=== PATIENT | male | born 1975 | race Caucasian/White ===

== ENCOUNTER 2020-06-07 07:37 | Outpatient (CLI) | payer OTHER, SELFPAY ==
--- NOTE | 2020-06-07 07:44 | XRR_ITS ---
PROCEDURE INFORMATION: Exam: XR Chest, 2 Views Exam date and time: 06/07/2020 7:54 AM Age: 44 years old Clinical indication: Cough; Additional info: Chronic cough TECHNIQUE: Imaging protocol: XR of the chest Views: 2 views. COMPARISON: No relevant prior studies available. FINDINGS: Lungs: Unremarkable. No consolidation. Pleural space: Unremarkable. No pleural effusion. No pneumothorax. Heart/Mediastinum: Unremarkable. No cardiomegaly. Bones/joints: Unremarkable. XR/XR chest 2V* [id number] IMPRESSION: No acute findings.
== END 2020-06-07 07:38 | disposition home or self-care (01) ==
LOC: RAD 07:42
PROVIDERS: PCP Family Medicine; Visit Provider Family Medicine
DX: R05 Cough (principal)
CPT/HCPCS: 71046

== ENCOUNTER 2020-10-11 20:00 | Outpatient (CLI) | payer OTHER, SELFPAY | END 2020-10-11 20:01 | disposition home or self-care (01) | LOC: SLEEP 10-12 09:33 | PROVIDERS: PCP Family Medicine; Visit Provider Family Medicine | DX: G47.10 Hypersomnia, unspecified (principal); G47.33 Obstructive sleep apnea (adult) (pediatric) | CPT/HCPCS: 95810 ==

== ENCOUNTER → 2021-10-09 08:15 | Outpatient (BNVA) | payer BC, SELFPAY | PROVIDERS: PCP Family Medicine; Visit Provider Family Medicine | DX: Z13.6 Encounter for screening for cardiovascular disorders (principal); Z12.5 Encounter for screening for malignant neoplasm of prostate | CPT/HCPCS: 80053; 80061; 85025; G0103 ==

== ENCOUNTER 2021-12-20 07:59 | Outpatient (CLI) | payer OTHER, SELFPAY ==
--- NOTE | 2021-12-20 14:21 | PFTS_ITS ---
Date of Study:12/20/21 Date of Dictation: 12/21/2021 MECHANICS: Prebronchodilator forced vital capacity (FVC) is normal. Prebronchodilator FEV1 is normal FEV1/FVC is normal There is no postbronchodilator study. FLOW VOLUME LOOP: Normal LUNG VOLUMES: Total lung capacity (TLC) is normal. Residual volume (RV) is normal. DIFFUSING CAPACITY FOR CARBON MONOXIDE: Normal . INTERPRETATION: The pulmonary function test is normal. MTDD
== END 2021-12-20 08:00 | disposition home or self-care (01) ==
PROVIDERS: PCP Family Medicine; Visit Provider Nurse Practitioner
DX: J45.909 Unspecified asthma, uncomplicated (principal)
CPT/HCPCS: 94010; 94726; 94729

== ENCOUNTER 2022-01-25 06:21 | Day surgery (SDC) | payer OTHER, SELFPAY ==
[2022-01-23 08:23] VITALS: BMI 27.7
--- NOTE | 2022-01-25 06:13 | W.PM.OPSFHP ---
Same Day Surgery H&P Indication for Procedure/HPI DATE OF PROCEDURE: January 25, 2022 CHIEF COMPLAINT/INDICATIONFOR SURGICAL PROCEDURE: Screening colonoscopy PREOP DIAGNOSIS: Screening colonoscopy PLANNED PROCEDURE: Operation Date: 01/25/22 08:00 Proposed Procedures p Colonoscopy 04082/z12.11(Not Applicable) - Edmond Galeana MD This is a pleasant 46 years old gentleman comes today for screening colonoscopy. ROS All systems have been reviewed negative except as for the above or per problem list. Medications/Allergies* Allergies/Adverse Reactions Allergy/AdvReac Type Severity Reaction Status Date / Time No Known Allergies Allergy Verified 01/25/22 07:52 Pertinent History/Comorbid Conditions* Medical History (Updated 11/24/21 @ 08:40 by Edmond Galeana MD) Allergic rhinitis Surgical History (Updated 09/26/20 @ 13:19 by Keily Doe DO) H/O vasectomy Family History (Updated 09/26/20 @ 13:11 by Shereen Barnes LPN) Diabetes Social History Smoking and tobacco status: never smoked Alcohol intake: current Alcohol intake frequency: holidays/special occasions only Pertinent Exam Findings alert, oriented x 3, regular rate & rhythm and procedure specific exam findings (Abdominal examination nontender nondistended soft) Recommendations Surgery/Procedure today (Screening colonoscopy) Coding Level of Care Code Acute Loss Prevention Coordinator for Neri Sosa
[2022-01-25 06:47] VITALS: BP 118/82; PULSE 61; RESP 18; TEMP 36.2; O2SAT 98
[2022-01-25] MEDS: sodium chloride 0.9% 1,000 ML 30 ML IV (06:49)
--- NOTE | 2022-01-25 07:57 | ANES.PREANE2 ---
Pre-Anesthetic Assessment Height/Weight: Height 1.7 m Weight 80.286 kg Temp Pulse Resp BP Pulse Ox 97.1 F L 61 18 118/82 98 01/25/22 06:47 01/25/22 06:47 01/25/22 06:47 01/25/22 06:47 01/25/22 06:47 Preop Diagnosis: Screening colonoscopy Operation Date: 01/25/22 08:00 Proposed Procedures p Colonoscopy 05180/z12.11(Not Applicable) - Edmond Galeana MD Familial anesthetic complications: None Was Beta Joel taken within 24 hours: N/A Was Clonidine taken within 24 hours: N/A Last intake: Intake Last Liquid Date 01/24/22 Last Liquid Time 22:00 Last Solid Date 01/23/22 Last Solid Time 22:00 Social No alcohol and No tobacco Exam alert, oriented x 3, clear to auscultation bilaterally and regular rate & rhythm Airway Submandibular: within normal limits Cervical ROM: within normal limits Mallampati: Class II Dentition: full GI Gastroesophageal Reflux Disease Anesthetic Plan ASA status: 2 Anesthesia: MAC Medications/Allergies Home Medications Medication Instructions Recorded Confirmed Last Taken Type omeprazole 40 mg capsule,delayed See Rx Instructions .ROUTE 01/17/22 01/25/22 01/24/22 Rx release .COMPLEX #90 cap Allergies Allergy/AdvReac Type Severity Reaction Status Date / Time No Known Allergies Allergy Verified 01/25/22 07:52 Current Medications Generic Name Dose Route Start Last Admin Trade Name Freq PRN Reason Stop Dose Admin Sodium Chloride 1,000 mls @ 30 mls/hr 01/25/22 06:45 01/25/22 06:49 Sodium Chloride 0.9% IV 01/26/22 06:44 30 mls/hr .Q24H JONG Administration PFSH Anesthesia Medical History Allergic rhinitis Surgical History H/O vasectomy Family History Other Diabetes Social History Smoking and tobacco status: never smoked Alcohol intake: current Alcohol intake frequency: holidays/special occasions only Data Anesthesia Cardiac Studies: No Data to Display
[2022-01-25 08:32] VITALS: BP 109/71; PULSE 65; RESP 18; TEMP 36.4; O2SAT 97
[2022-01-25 08:41] VITALS: BP 116/73; PULSE 60; RESP 18; TEMP 36.2; O2SAT 98
--- NOTE | 2022-01-25 10:56 | ANE.PACU2 ---
Inpatient post-anesthesia follow up: Airway intact: Yes Vital signs: Temperature 97.2 F Pulse Rate 60 Respiratory Rate 18 Blood Pressure 116/73 Pulse Oximetry 98 Oxygen Delivery Me thod Room Air Oxygen Flow Rate Fraction of Inspir ed Oxygen Hydration adequate: Yes Nausea and vomiting: No Pain level: 1
== END 2022-01-25 08:54 | disposition home or self-care (01) ==
PROVIDERS: PCP Family Medicine; Visit Provider Surgery
PROC: 0DJD8ZZ Inspection of Lower Intestinal Tract, Via Natural or Artificial Opening Endoscopic (ICD-10-PCS; CPT 45378; principal; 2022-01-25 08:00)
DX: Z12.11 Encounter for screening for malignant neoplasm of colon (principal); K57.30 Diverticulosis of large intestine without perforation or abscess without bleeding; K21.9 Gastro-esophageal reflux disease without esophagitis
CPT/HCPCS: 45378; J2704; J7030

== ENCOUNTER → 2022-02-12 11:17 | Outpatient (BNVA) | payer OTHER, SELFPAY | PROVIDERS: PCP Family Medicine; Visit Provider Surgery | DX: Z09 Encounter for follow-up examination after completed treatment for conditions other than malignant neoplasm (principal); K57.31 Diverticulosis of large intestine without perforation or abscess with bleeding | CPT/HCPCS: 99213 ==

== ENCOUNTER 2023-11-29 07:47 | Outpatient (CLI) | payer OTHER, SELFPAY ==
--- NOTE | 2023-11-29 07:53 | MR_ITS ---
WS: [id number] MRI LEFT SHOULDER HISTORY: L SHOULDER PAIN/?ROTATOR CUFF TEAR COMPARISON: None available. TECHNIQUE: Multiplanar sequences of the shoulder joint are submitted. Mild AC joint arthritis. There is mild encroachment upon the myotendinous portion of the supraspinatu s. Mild subacromial impingement. There is a very small amount of fluid and increased T2 signal in the subcu acromial and subdeltoid bursa. No os acromion. Biceps tendon normal position. Mild narrowing of the glenohumeral joint. No acute fractures or marrow edema. No rotator cuff muscle atrophy or edema. There is increased T2 signal with mild tendinopathy in the distal supraspinatus. Co nsistent with mild tendinopathy. There is additional edema along the bursal surface of the supraspina tus muscle and tendon where the AC joint encroaches. At this time there is no tear in the tendon itse lf. Normal subscapularis and infraspinatus tendons. No joint effusion. No labral tear. IMPRESSION: 1. 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 2. Mild tendinopathy in the distal supraspinatus tendon. 3. There is additional mild edema in the distal, bursal surface of the supraspinatus at the level of the AC joint osteophyte encroachment. 4. No rotator cuff tendon tear.
== END 2023-11-29 07:48 | disposition home or self-care (01) ==
LOC: RAD 07:48
PROVIDERS: PCP Family Medicine; Visit Provider Nurse Practitioner
DX: M19.012 Primary osteoarthritis, left shoulder (principal)
CPT/HCPCS: 73221